=== PATIENT | female | born 1960 | race Two or more races ===

== ENCOUNTER 2017-12-26 01:24 | Emergency (ER) | payer BC ==
[~2017-12-26] VITALS: Ht 157.5 cm; Wt 64.4 kg
[2017-12-26] MEDS ORDERED: HYDROcodone-ACET 7.5/325MG TAB PO ONE (01:45)
[2017-12-26] MEDS ORDERED: KETOROLAC TROMETH 60MG/2ML VIAL IM ONE (01:45)
[2017-12-26 01:58] VITALS: BP 142/83
== END 2017-12-26 03:04 | disposition home or self-care (01) ==
LOC: ER 01:30
DX: M43.6 Torticollis (principal); J45.909 Unspecified asthma, uncomplicated; M19.90 Unspecified osteoarthritis, unspecified site
CPT/HCPCS: 70490; 96372; 99284; J1885